=== PATIENT | female | born 2000 | race Caucasian/White ===

== ENCOUNTER 2023-06-23 09:09 | Inpatient (IN) ==
[2023-06-23] MEDS ORDERED: LIDOCAINE 1% LOCAL 20 ML VIAL INFIL PRN (10:40)
[2023-06-23] MEDS ORDERED: OXYTOCIN 30 UNITS/NSS 30 UNITS/500 ML BAG IV PRN ×2 (10:40→23:19)
[2023-06-23] MEDS: miSOPROStoL 25 MCG TAB SL SCH (11:15)
--- NOTE | 2023-06-23 11:17 | History & Physical Report ---
Date of Service June 23, 2023 Assessment & Plan (1) 40 weeks gestation of : Plan: Admit, routine labs, epidural if patient request Misoprostol 25 mcg sublingual every 4 hour cervix for cervical ripening Plan for oxytocin for augmentation later with AROM Anticipate spontaneous vaginal delivery (2) Class 2 obesity: (3) History of gestational diabetes mellitus (GDM) in prior , currently in third trimester: Admission and Anticipated Discharge Date Admission Date: June 23, 2023 History of Present Illness Chief Complaint: IOL Primary Care Provider: Shelby Crandall DO Patient is a pleasant 23-year-old -0-0-1 at 40 weeks and 5 days who presents to labor and delivery for induction of labor for post dates. Upon presentation she denies contractions, leaking of fluid or vaginal bleeding. Notes good movement. Denies any headache, blurry vision, right upper quadrant or epigastric pain. Otherwise feeling well has been complicated by class II obesity in which she has been getting NSTs weekly since 37 weeks History of gestational diabetes, normal glucose screening test this Allergies Allergy/AdvReac Type Severity Reaction Status Date / Time bupropion [From Wellbutrin] Allergy Hives Verified 06/23/23 09:52 adhesive tape AdvReac Hives Verified 06/23/23 09:52 Home Medications Medication Instructions Recorded Confirmed Type epinephrine 0.3 mg/0.3 mL 0.3 mg (0.3 mL) IM ONCE PRN 02/01/22 06/23/23 Rx injection syringe anaphylaxis #2 ea 1 tab PO DAILY 06/23/23 06/23/23 History iron 1 tab PO DAILY 06/23/23 06/23/23 History Patient History Medical History Anxiety Surgical History History of tonsillectomy At first grade. Social History Smoking Status: Former smoker Tobacco Type: Cigarettes Hx Alcohol Use: No Hx Substance Use: No Preferred Language: Turkish Floor Care Technician Required: No Beliefs That Will Affect Care: None marital status: Current Living Situation: Spouse and Family Current Living Situation Comment: Patient lives with spouse, daughter and husbands parents. Feels Safe at Home: Yes Safety Concerns: Feels Safe At This Time OB History SVDx1 at [facility] [employer] History See record Review of Systems All systems reviewed & are unremarkable except as noted in HPI & below Physical Exam Constitutional: WD/WN, vitals as above Respiratory: normal respiratory effort, lungs clear to auscultation Cardiovascular: RRR, no murmur, no edema Gastrointestinal (Abdomen): normal bowel sounds, soft, nontender, no hepatosplenomegaly Gravid Genitourinary: External genitalia: Normal Cervix: 2/50/-3, cephalic, intact Results & Data Vital Signs (Past 12 Hours) Vital Signs Temp Pulse Resp BP 06/23/23 11:11 77 06/23/23 11:11 119/68 06/23/23 11:10 18 06/23/23 11:10 36.5 C 18 06/23/23 09:57 36.8 C 18 06/23/23 09:24 36.8 C 98 H 18 116/56 L Code Status & VTE Plan VTE Prophylaxis Plan VTE Prophylaxis will be ordered: No Monitoring External Monitor heart tracing: Baseline 130, moderate variability, positive accelerations no decelerations, category 1 tracing Tocodynamometer Irritability
[2023-06-23 11:31] LABS: Hematocrit (blood only) 33.6 % (37.0-47.0); Hemoglobin 11.1 g/dl (12.0-16.0); Mean Corpuscular Hemoglobin 29.5 pg (25.0-34.0); Mean Corpuscular Volume 89.4 fL (80.0-100.0); Platelet Count 216 K/uL (130-400); RDW Coefficient of Variation 13.2 % (11.5-14.5); RDW Standard Deviation 43.2 fL (36.4-46.3); Red Blood Count 3.76 M/uL (4.20-5.40); White Blood Count 9.75 K/ul (4.8-10.8)
--- NOTE | 2023-06-23 15:42 | Obstetrical Progress Note ---
Date of Service June 23, 2023 Assessment & Plan (1) 40 weeks gestation of : Plan: Patient is now status post misoprostol 25 mcg sublingual x 2 doses Start oxytocin for augmentation Anticipate spontaneous vaginal delivery (2) Class 2 obesity: (3) History of gestational diabetes mellitus (GDM) in prior , currently in third trimester: Admission and Anticipated Discharge Date Admission Date: June 23, 2023 Subjective Patient comfortable, agreeable to AROM at this time and insertion of IUPC for starting oxytocin Physical Exam Genitourinary: heart tracing: Baseline 130, moderate variability, positive accelerations, questionable variables Tocometer: Irregular contractions Cervix: 4/50/-3 AROM performed with blood-tinged clear fluid, no cord felt, IUPC placed without any complication Results & Data Vital Signs (Past 12 Hours) Vital Signs Temp Pulse Resp BP 06/23/23 15:09 87 06/23/23 15:09 122/60 06/23/23 14:32 102 H 06/23/23 14:32 128/71 06/23/23 14:31 16 06/23/23 14:31 36.6 C 16 06/23/23 11:11 77 06/23/23 11:11 119/68 06/23/23 11:10 18 06/23/23 11:10 36.5 C 18 06/23/23 09:57 36.8 C 18 06/23/23 09:24 36.8 C 98 H 18 116/56 L
[2023-06-23] MEDS: LACTATED RINGER'S 1,000 ML IV PRN (19:38)
[2023-06-23] MEDS: OXYTOCIN 30 UNITS/NSS 30 UNITS/500 ML BAG IV PRN (19:39)
[2023-06-23] MEDS ORDERED: LIDOCAINE 2%/EPINEPHRINE 1:200,000 20 ML PF ONE (20:05)
[2023-06-23] MEDS ORDERED: ROPIVACAINE 0.5% PF 5 MG/ML 20 ML VIAL EPI PRN (20:16)
[2023-06-23] MEDS ORDERED: LIDOCAINE 2% MPF LOCAL 5 ML VIAL EPI PRN (20:16)
[2023-06-23] MEDS ORDERED: NALOXONE HCL 1 MG in SODIUM CHLORIDE 0.9% 1,000 ML IV PRN (20:16)
[2023-06-23] MEDS ORDERED: ePHEDrine sulfate 50 MG/ML AMP IV PRN (20:16)
[2023-06-23] MEDS ORDERED: NALOXONE HCL 0.4 MG/1 ML VIAL/CARP IV PRN (20:16)
[2023-06-23] MEDS ORDERED: fentaNYL citrate PF 100 MCG/2 ML VIAL EPI PRN (20:16)
[2023-06-23] MEDS ORDERED: SODIUM CHLORIDE 0.9% PF INJ 10 ML VIAL EPI STA (20:16)
[2023-06-23] MEDS ORDERED: BUPIVACAINE 0.25% PF 30 ML VIAL EPI PRN (20:16)
[2023-06-23] MEDS ORDERED: NALBUPHINE HCL 5 MG in SYRINGE 0 ML IV PRN (20:16)
[2023-06-23] MEDS ORDERED: diphenhydrAMINE 50 MG/ML VIAL IV PRN (20:16)
[2023-06-23] MEDS ORDERED: SODIUM CHLORIDE 0.9% PF INJ 10 ML VIAL EPI PRN (20:16)
--- NOTE | 2023-06-23 20:16 | Anesthesiology Consultation ---
Date of Service June 23, 2023 Assessment & Plan Chart Review Chart Review: Acceptable Risk for Labor Epidural Consults Requested none History Height/Weight Height: 5 ft 5 in Weight: 113.852 kg Allergies Allergy/AdvReac Type Severity Reaction Status Date / Time bupropion [From Wellbutrin] Allergy Hives Verified 06/23/23 09:52 adhesive tape AdvReac Hives Verified 06/23/23 09:52 Medications Home Medications Medication Instructions Recorded Confirmed Last Taken epinephrine 0.3 mg/0.3 mL 0.3 mg (0.3 mL) IM ONCE PRN 02/01/22 06/23/23 Unknown injection syringe anaphylaxis #2 ea 1 tab PO DAILY 06/23/23 06/23/23 06/22/23 12:00 iron 1 tab PO DAILY 06/23/23 06/23/23 06/22/23 07:00 Active Medications Generic Name Dose Route Start Last Admin Trade Name Freq PRN Reason Stop Dose Admin Lactated Ringer's 1,000 mls @ 125 mls/hr 06/23/23 10:40 06/23/23 19:38 Lr IV 06/25/23 10:39 125 mls/hr .Q8H PRN Administration L&D Protocol Protocol Oxytocin 30 units in 500 mls @ 2 mls/hr 06/23/23 15:41 06/23/23 19:39 Pitocin 30 Units/Nss IV 06/25/23 15:40 0.12 units/hr .Q24H PRN 2 mls/hr Labor Induction/Augmentation Administration Protocol 0.12 UNITS/HR Past Medical History Medical History Anxiety Past Surgical History Surgical History (Updated 06/23/23 @ 15:07 by Harini Walker RN) History of cholecystectomy 2019 History of tonsillectomy At first grade. Social History Smoking Status: Former smoker Hx Alcohol Use: No Hx Substance Use: No substance use type: does not use Physical Exam Vital Signs Last Vital Signs Temp 36.8 C 06/23/23 19:17 Pulse 92 H 06/23/23 19:07 Resp 18 06/23/23 19:17 BP 132/71 06/23/23 19:07 Testing Laboratory Results 06/23/23 11:04
[2023-06-23] MEDS: LIDOCAINE 2%/EPINEPHRINE 1:200,000 20 ML PF EPI STA (20:25)
[2023-06-23] MEDS: fentANYL 2 MCG/ML BUPIVacaine 0.125%-NSS 100ML BAG EPI PRN (20:26)
[2023-06-23] MEDS: BUPIVACAINE 0.25% PF 30 ML VIAL ONE (21:48)
[2023-06-23] MEDS: fentaNYL citrate PF 100 MCG/2 ML VIAL ONE (21:48)
[2023-06-23] MEDS: ePHEDrine sulfate 50 MG/ML AMP ONE (21:48)
[2023-06-23] MEDS: BUPIVACAINE 0.25% PF 30 ML VIAL EPI STA (21:49)
[2023-06-23] MEDS: fentANYL 2 MCG/ML BUPIVacaine 0.125%-NSS 100ML BAG ONE (21:49)
[2023-06-23] MEDS: fentaNYL citrate PF 100 MCG/2 ML VIAL EPI STA (21:50)
[2023-06-23] MEDS ORDERED: HYDROCORTISONE ACETATE 25 MG SUPP PR PRN (23:19)
[2023-06-23] MEDS ORDERED: DIPHTHER/TETAN/PERTUS Vaccine (Tdap, Adol/Adult) 0.5mL IM ONE (23:19)
[2023-06-23] MEDS ORDERED: ACETAMINOPHEN 325 MG TAB PO PRN (23:19)
[2023-06-23] MEDS ORDERED: BENZOCAINE 20% SPRY 85 APPLN/85 GM CAN EXT PRN (23:19)
--- NOTE | 2023-06-23 23:20 | Delivery Summary ---
Vaginal Delivery Summary Date of Service June 23, 2023 Vaginal Delivery Summary Delivery Note History synopsis: Patient is a 23-year-old -0-0-1 admitted at 40 weeks and 5 days for postdates induction of labor. Patient was 2 cm on admission Labor Course: Membranes were swept on admission, she was given 2 doses of misoprostol 25 mcg sublingual 4 hours apart. After the second dose artificial rupture of membranes was performed and oxytocin was started 4 hours later her labor and delivery protocol. She received an epidural for pain control oxytocin was increased slowly to 8 milliunits/h. She was then found to be complete. I was called for delivery Delivery Summary: Patient was placed in the dorsal lithotomy position. She was prepped and draped in the usual sterile fashion. Upon maternal pushing the head was delivered atraumatically followed by the anterior shoulders, posterior shoulders then the remainder of the infants body. The was immediately placed on mother's abdomen, dried and stimulated. Delayed cord clamping for 60 seconds was performed. The infants mouth and nose were bulb suctioned by nursing staff. A female was delivered at 2303, weight pending with APGARS of 8 at 1 minute and 9 at 5 minutes. The infant was handed off to the awaiting nursing staff. Cord blood gases were not obtained. The placenta delivered intact with three vessel cord. Placenta was sent to pathology. Thirty units of Pitocin were added to the IV fluid and allowed to run freely. Uterine massage was performed until uterus was deemed firm. Upon inspection of the perineum, vagina and cervix were intact. Upon re-inspection the patient was hemostatic. Uterus again massaged and found to be firm. Needle and sponge counts were correct. Patient was stable and allowed to recover in L&D room. was stable and remained in room with mother in the labor and delivery unit. EBL 200 mls
--- NOTE | 2023-06-24 02:49 | Anesthesia Procedure Note ---
Date of Service June 24, 2023 Anesthesia Post Epidural Note Vital Signs Vital Signs: Temp Pulse Resp BP Pulse Ox 36.6 C 90 18 128/73 97 06/23/23 20:59 06/24/23 01:14 06/24/23 01:15 06/24/23 01:14 06/23/23 23:12 Notes Mental Status: alert / awake / arousable and participated in evaluation Nausea / Vomiting: adequately controlled Pain: adequately controlled Airway Patency, RR, SpO2: stable & adequate BP & HR: stable & adequate Hydration State: stable & adequate Neuraxial Anesthesia: was administered and sensory block is resolving Anesthetic Complications: no major complications apparent and Pt Satisfied with anesthetic care Epidural: Removed without complications and With tip intact Notes: pt c/o "muscle cramp" like pain at epidural site that was relieved with catheter removal. no grossly abnormal findings at site. resolvi g appropriately.
[2023-06-24 06:09] LABS: Hematocrit (blood only) 32.4 % (37.0-47.0); Hemoglobin 10.8 g/dl (12.0-16.0); Mean Corpuscular Hemoglobin 29.3 pg (25.0-34.0); Mean Corpuscular Hgb Conc 33.3 g/dL (32.0-36.0); Mean Platelet Volume 9.9 fL (9.4-12.4); Platelet Count 212 K/uL (130-400); RDW Coefficient of Variation 13.2 % (11.5-14.5); RDW Standard Deviation 42.3 fL (36.4-46.3); Red Blood Count 3.68 M/uL (4.20-5.40); White Blood Count 15.22 K/ul (4.8-10.8)
[2023-06-24] MEDS: DOCUSATE SODIUM 100 MG CAP PO SCH (08:09)
[2023-06-24] MEDS: PRENATAL VITAMIN 1 TAB PO SCH (08:09)
[2023-06-24] MEDS: IBUPROFEN 600 MG TAB PO PRN (08:15)
--- NOTE | 2023-06-24 09:46 | Obstetrical Progress Note ---
Date of Service June 24, 2023 Subjective Ambulation: ambulating normally Voiding: no voiding problems Passing Gas:: Yes Diet Tolerance:: regular diet Lochia:: Small Feeding Type:: breast feeding Current Pain Level(1-10): 0 doing well. plans for d/c in AM Physical Exam Constitutional WD/WN, vitals as above Gastrointestinal (Abdomen) Inspection/Auscultation: abdomen normal to inspection abdomen soft and non-tender. fundus firm Musculoskeletal Extremities: extremities normal to inspection Skin no rashes, warm and dry Neurologic patellar DTR's 2+ bilat, sensation intact Psychiatric A+Ox3, euthymic affect Results & Data Vital Signs (Past 12 Hours) Vital Signs Temp Pulse Pulse Resp BP BP Pulse Ox 06/24/23 08:20 36.4 C L 79 16 127/75 98 06/24/23 08:20 06/24/23 06:00 36.7 C 83 18 132/75 97 06/24/23 02:00 36.7 C 82 20 125/75 98 06/24/23 01:15 18 06/24/23 01:14 90 128/73 06/24/23 01:00 18 06/24/23 00:59 96 H 133/60 06/24/23 00:45 18 06/24/23 00:44 82 135/69 06/24/23 00:30 18 06/24/23 00:29 90 133/65 06/24/23 00:15 18 06/24/23 00:14 80 140/74 06/24/23 00:00 18 06/23/23 23:59 75 06/23/23 23:59 136/60 06/23/23 23:45 18 06/23/23 23:44 87 06/23/23 23:44 137/62 06/23/23 23:30 18 06/23/23 23:29 77 06/23/23 23:29 146/65 H 06/23/23 23:15 18 06/23/23 23:14 97 H 06/23/23 23:14 141/63 H 06/23/23 23:12 97 06/23/23 23:12 96 H 06/23/23 23:10 90 06/23/23 23:10 138/70 06/23/23 23:07 99 06/23/23 23:07 89 06/23/23 23:02 99 06/23/23 23:02 94 H 06/23/23 23:00 18 06/23/23 22:57 99 06/23/23 22:57 88 06/23/23 22:55 102 H 06/23/23 22:55 134/91 06/23/23 22:52 100 06/23/23 22:52 102 H 06/23/23 22:47 98 06/23/23 22:47 97 H 06/23/23 22:42 100 06/23/23 22:42 99 H 06/23/23 22:41 85 06/23/23 22:41 142/76 H 06/23/23 22:37 100 06/23/23 22:37 81 06/23/23 22:32 99 06/23/23 22:32 93 H 06/23/23 22:30 18 06/23/23 22:27 100 06/23/23 22:27 91 H 06/23/23 22:25 71 06/23/23 22:25 131/65 06/23/23 22:22 99 06/23/23 22:22 75 06/23/23 22:17 98 06/23/23 22:17 73 06/23/23 22:12 98 06/23/23 22:12 74 06/23/23 22:11 78 06/23/23 22:11 135/71 06/23/23 22:07 97 06/23/23 22:07 81 06/23/23 22:02 98 06/23/23 22:02 79 06/23/23 22:00 18 06/23/23 21:57 97 06/23/23 21:57 77 06/23/23 21:56 76 06/23/23 21:56 134/65 06/23/23 21:52 98 06/23/23 21:52 80 06/23/23 21:47 98 06/23/23 21:47 75 06/23/23 21:45 18 O2 Del Method 06/24/23 08:20 Room Air 06/24/23 08:20 Room Air 06/24/23 06:00 Room Air 06/24/23 02:00 Room Air 06/24/23 01:15 06/24/23 01:14 06/24/23 01:00 06/24/23 00:59 02/28/24 00:45 06/24/23 00:44 06/24/23 00:30 06/24/23 00:29 06/24/23 00:15 06/24/23 00:14 06/24/23 00:00 06/23/23 23:59 06/23/23 23:59 06/23/23 23:45 06/23/23 23:44 06/23/23 23:44 06/23/23 23:30 06/23/23 23:29 06/23/23 23:29 06/23/23 23:15 06/23/23 23:14 06/23/23 23:14 06/23/23 23:12 06/23/23 23:12 06/23/23 23:10 06/23/23 23:10 06/23/23 23:07 06/23/23 23:07 06/23/23 23:02 06/23/23 23:02 06/23/23 23:00 06/23/23 22:57 06/23/23 22:57 06/23/23 22:55 06/23/23 22:55 06/23/23 22:52 06/23/23 22:52 06/23/23 22:47 06/23/23 22:47 06/23/23 22:42 06/23/23 22:42 06/23/23 22:41 06/23/23 22:41 06/23/23 22:37 06/23/23 22:37 06/23/23 22:32 06/23/23 22:32 06/23/23 22:30 06/23/23 22:27 06/23/23 22:27 06/23/23 22:25 06/23/23 22:25 06/23/23 22:22 06/23/23 22:22 06/23/23 22:17 06/23/23 22:17 06/23/23 22:12 06/23/23 22:12 06/23/23 22:11 06/23/23 22:11 06/23/23 22:07 06/23/23 22:07 06/23/23 22:02 06/23/23 22:02 06/23/23 22:00 06/23/23 21:57 06/23/23 21:57 06/23/23 21:56 06/23/23 21:56 06/23/23 21:52 06/23/23 21:52 06/23/23 21:47 06/23/23 21:47 06/23/23 21:45 Laboratory Results 06/23/23 06/24/23 11:04 05:53 WBC 9.75 15.22 H RBC 3.76 L 3.68 L Hgb 11.1 L 10.8 L Hct 33.6 L 32.4 L MCV 89.4 88.0 MCH 29.5 29.3 MCHC 33.0 33.3 RDW Std Deviation 43.2 42.3 RDW Coeff of Cassie 13.2 13.2 Plt Count 216 212 MPV 10.0 9.9
[2023-06-24] MEDS: bisacodyL 5 MG TABEC PO SCH (20:16)
[2023-06-25 07:10] LABS: Hematocrit (blood only) 32.5 % (37.0-47.0); Hemoglobin 10.6 g/dl (12.0-16.0)
--- NOTE | 2023-06-25 10:56 | Obstetrical Progress Note ---
Date of Service June 25, 2023 Subjective Ambulation: ambulating normally Voiding: no voiding problems Passing Gas:: Yes Diet Tolerance:: regular diet Lochia:: Small Feeding Type:: breast feeding Review of Systems All systems reviewed & are unremarkable except as noted in HPI & below Physical Exam Constitutional WD/WN, vitals as above well developed and well nourished Eyes PERRL, conjunctivae normal, anicteric sclerae Neck trachea midline, no thyromegaly Respiratory normal respiratory effort, lungs clear to auscultation Auscultation: no crackles, no rales and no wheezes Cardiovascular RRR, no murmur, no edema Gastrointestinal (Abdomen) normal bowel sounds, soft, nontender, no hepatosplenomegaly Uterus is below umbilicus Musculoskeletal no cyanosis or clubbing, extremities motor strength 5/5 Skin no rashes, warm and dry Neurologic patellar DTR's 2+ bilat, sensation intact Psychiatric A+Ox3, euthymic affect Genitourinary normal external appearance Results & Data Vital Signs (Past 12 Hours) Vital Signs Temp Pulse Resp BP Pulse Ox O2 Del Method 06/25/23 07:45 36.5 C 69 18 122/74 97 Room Air 06/25/23 00:10 36.9 C 63 18 118/64 96 Room Air
--- NOTE | 2023-06-25 10:58 | Obstetrical Progress Note ---
Date of Service June 25, 2023 Assessment & Plan (1) Normal course: PPD #2 pt doing well d/c home with instruction Results & Data Vital Signs (Past 12 Hours) Vital Signs Temp Pulse Resp BP Pulse Ox O2 Del Method 06/25/23 07:45 36.5 C 69 18 122/74 97 Room Air 06/25/23 00:10 36.9 C 63 18 118/64 96 Room Air
[2023-06-25] MEDS ORDERED: bisacodyL 10 MG SUPP PR PRN (23:19)
== END 2023-06-25 12:00 | disposition home or self-care (01) | DRG 807 ==
LOC: 4S1 09:09 → 4E1 06-24 02:06